=== PATIENT | male | born 1955 | race Caucasian/White ===

== ENCOUNTER 2024-01-18 14:49 | Emergency (ER) | payer MEDICARE, MEDICAID, SELFPAY ==
[2024-01-18 14:50] VITALS: BP 150/84; PULSE 68; RESP 18; TEMP 36.3; O2SAT 98; BMI 36.3
[2024-01-18 15:30] VITALS: BP 145/80; PULSE 74; RESP 14; TEMP 36.1; O2SAT 97
--- NOTE | 2024-01-18 15:39 | ED.RN ---
pt complaining about retaking vitals, i just had them taken 45 minutes ago.
--- NOTE | 2024-01-18 15:45 | EX.ED.UPPERE ---
HPI History of Present Illness Chief Complaint: Upper Extremity Injury Detail of Chief Complaint: Sent for evaluation for possible infection right hand Informant: patient Occured/Mechanism Comment: Swelling of right hand and chronic pain Onset/Context/Timing Onset: Days Context: Gradual Onset Timing: Continuous Location: Right hand Current Severity: Mild Maximum Severity: Mild Worsened by: Nonuse and dependency Relieved by: Nothing Associated Symptoms Associated Symptoms: Negative for Parasthesia, Weakness or Loss of Funtion Narrative Narrative: Patient is a 68-year-old [id number] male. He has a history of arthritis. He was seen by pain management. He was sent to the emergency room because there was concern for infection. Patient [place] fever, chills night sweats. Patient denies redness. Patient admits he has not been using his hand as much and his hand has been below the level of his heart. He only has swelling of his right hand which she is not using because of chronic pain due to arthritis. He specifically was sent to see if he has infection otherwise he will have the hand injected. Prior similar symptoms: Yes Recent Illness/Hospitalization: No PFSH PFSH Home Medications apixaban 5 mg tablet (Eliquis) mg PO 07/01/23 [History Last Taken Unknown] biotin 1 mg capsule 1 mg PO DAILY 07/01/23 [History Last Taken Unknown] cholecalciferol (vitamin D3) 10 mcg (400 unit) capsule 10 mcg PO DAILY 07/01/23 [History Last Taken Unknown] dulaglutide 0.75 mg/0.5 mL subcutaneous pen injector (Trulicity) 0.75 mg subcut QWEEK 07/01/23 [History Last Taken Unknown] ezetimibe 10 mg tablet mg PO 07/01/23 [History Last Taken Unknown] insulin NPH-regular 70-30 U-100 insulin 100 unit/mL subcutaneous pen (Humulin 70/30 U-100 KwikPen) subcut 07/01/23 [History Last Taken Unknown] lisinopril 5 mg tablet mg PO 07/01/23 [History Last Taken Unknown] magnesium 200 mg tablet 200 mg PO DAILY 07/01/23 [History Last Taken Unknown] metformin 1,000 mg tablet 1,000 mg PO 07/01/23 [History Last Taken Unknown] metoprolol succinate 25 mg tablet,extended release 24 hr mg PO 07/01/23 [History Last Taken Unknown] omeprazole 40 mg capsule,delayed release 40 mg PO 07/01/23 [History Last Taken Unknown] vitamin B complex (B Complex-Vitamin B12 tablet) 1 tab PO DAILY 07/01/23 [History Last Taken Unknown] Allergy/AdvReac Type Severity Reaction Status Date / Time amiodarone AdvReac Severe Dizziness, Verified 01/18/24 14:52 HAs empagliflozin AdvReac Severe muscle Verified 01/18/24 14:52 [From Jardiance] weakness semaglutide [From Ozempic] AdvReac Severe digestive Verified 01/18/24 14:52 issues tirzepatide [From Mounjaro] AdvReac Severe Digestive Verified 01/18/24 14:52 issues Social History (Updated 01/18/24 @ 15:[address] Alfonzo Hubbard MD) household members: spouse Smoking Status: Never smoker alcohol intake: never ROS ROS ED Constitutional Constitutional ED: Denies chills, fever(s) or subjective Musculoskeletal Musculoskeletal: Denies myalgias Integumentary Denies rash Neurologic Neurologic: Denies paresthesias or weakness Hematologic/Lymphatic Hematologic/Lymphatic: Denies easy bleeding or easy bruising EXAM Physical Exam Const Vital Signs: 01/18/24 14:50 01/18/24 15:30 Temperature 97.4 F L 97 F L Temperature Source Temporal Temporal Pulse Rate 68 74 Respiratory Rate 18 14 Blood Pressure 150/84 H 145/80 H Blood Pressure Mean 106 101 Pulse Ox 98 97 Oxygen Delivery Method Room Air Room Air Positive well nourished, well developed and obese General Appearance ED: well developed and NAD Nutritional Appearance: obese HEENT normocephalic and atraumatic Eyes PERRL and EOMs intact bilaterally Resp normal respiratory effort Cardio regular rate and regular rhythm Extremity Negative for normal to inspection Extremity Narrative: There is swelling of the right hand. There is no erythema, warmth or induration. There is no lymphangitis. There is no epitrochlear lymphadenopathy. There is no effusion of the wrist joint. There is no pain with passive flexion extension of the wrist or abduction or adduction of the wrist. There is no pain to palp patient of the digits and there is no pain with passive extension and flexion of the index through little finger. There is no pain with passive range of motion of the thumb. Capillary refill is normal. Patient does have swelling. Neuro oriented x3 and CN's II-XII intact bilaterally Sensorium / Orientation: alert Skin General Skin Exam: Negative for petechiae Lesions: no lesions Rashes: no rashes MDM MDM MDM Narrative Medical decision making narrative: Differential diagnosis is dependent lymphedema, exacerbation of osteo arthritis. Doubt hematoma. Patient is noted to be on apixaban. Clinically and from historical standpoint there is no concern for infection. Discharge Plan Triage Chief Complaint: Upper Extremity Injury ED Provider: Alfonzo Hubbard Dx/Rx/DC Orders Clinical Impression: Dependent edema Instructions: ED Lymphedema Prescriptions: No Action metformin 1,000 mg tablet 1,000 mg PO Patient Comments: take 1/2 tablets by mouth twice a day omeprazole 40 mg capsule,delayed release(DR/EC) 40 mg PO Patient Comments: take 1 capsule by mouth once daily magnesium 200 mg tablet 200 mg PO DAILY lisinopril 5 mg tablet PO Patient Comments: take 1 tablet by mouth once daily ezetimibe 10 mg tablet PO Patient Comments: take 1 tablet by mouth once daily Eliquis 5 mg tablet PO Patient Comments: TAKE 1 TABLET BY MOUTH EVERY 12 HOURS metoprolol succinate 25 mg tablet extended release 24 hr PO Patient Comments: take 1 tablet by mouth once daily vitamin B complex [B Complex-Vitamin B12] Tablet 1 tab PO DAILY cholecalciferol (vitamin D3) 10 mcg (400 unit) capsule 10 mcg PO DAILY biotin 1 mg capsule 1 mg PO DAILY Humulin 70/30 U-100 KwikPen 100 unit/mL (70-30) insulin pen subcut Patient Comments: INJECT 18 UNITS WITH BREAKFAST AND 46 UNITS WITH DINNER Trulicity 0.75 mg/0.5 mL pen injector 0.75 mg subcut QWEEK Primary Care Provider: Karthik Edge Referrals: Karthik Edge MD [Primary Care Provider] - As Needed Activity Restrictions/Additional Instructions: 1. You need to elevate your hand above your nose to help reduce the swelling 2. Use of your hand will also reduce the swelling. Disposition Disposition: Home, Self Care
== END 2024-01-18 16:00 | disposition home or self-care (01) ==
PROVIDERS: Emergency Provider Emergency Medicine; PCP Family Medicine; Visit Provider Emergency Medicine
DX: R60.0 Localized edema (principal); Z79.4 Long term (current) use of insulin; M19.041 Primary osteoarthritis, right hand; G89.29 Other chronic pain; Z79.01 Long term (current) use of anticoagulants; Z79.85 Long-term (current) use of injectable non-insulin antidiabetic drugs; Z79.84 Long term (current) use of oral hypoglycemic drugs; Z79.899 Other long term (current) drug therapy
CPT/HCPCS: 99282

== ENCOUNTER → 2024-05-16 | Outpatient (CLI) | payer MEDICARE, MEDICAID, SELFPAY ==
--- NOTE | 2024-05-16 13:45 | RAD_ITS ---
STUDY: X-RAY - PELVIS AND LEFT HIP REASON FOR EXAM: Male, 68 years old. Pain. Evaluate for sacroiliitis. TECHNIQUE: 3 views of the pelvis and hip. COMPARISON: None. FINDINGS: Osteopenia. Mild degenerative arthrosis of both sacroiliac joints and the symphysis pubis. Mild arthrosis of both hips. Normal bowel gas pattern with air seen to the rectosigmoid. Moderate amount feces colon. Phleboliths. Soft tissue calcification projected below the right ischium, likely vascular in origin. Vascular calcification. RAD/HIP, UNI W/ Pelvis 2-3 Views IMPRESSION: Osteopenia with mild degenerative arthrosis of both sacroiliac joints, symphysis pubis and both hips. Electronically Signed: Jaron Hickey MD at 14:09 EDT ,
== END | disposition home or self-care (01) ==
PROVIDERS: PCP Family Medicine; Referring Provider Anesthesiology; Visit Provider Anesthesiology
DX: M46.1 Sacroiliitis, not elsewhere classified (principal)
CPT/HCPCS: 73502

== ENCOUNTER → 2024-11-08 | Outpatient (CLI) | payer MEDICARE, MEDICAID, SELFPAY ==
--- NOTE | 2024-11-08 14:30 | RAD_ITS ---
PROCEDURE: Right shoulder radiographs REASON FOR EXAM: Pain TECHNIQUE: Four views of the right shoulder COMPARISON: None FINDINGS: See impression RAD/Shoulder min 2 Views IMPRESSION: Negative for fracture or malalignment. Small mineralized foci along the manager chinese ior aspect of the greater humeral tuberosity which may relate to calcific tendinopathy. Mineralization also noted along the later al aspect of the acromion which may relate to deltoid calcific tendinopathy. Please correlate. Mild acromioclavicular joint osteoarthritis. Reading Location: [place]
--- NOTE | 2024-11-08 14:30 | RAD_ITS ---
PROCEDURE: Left shoulder radiographs REASON FOR EXAM: Pain TECHNIQUE: Four views of the left shoulder COMPARISON: None FINDINGS: See impression RAD/Shoulder min 2 Views IMPRESSION: Negative for fracture or malalignment. Small foci of mineralization along the posterior greater humeral tuberosity and anterior aspect of the proximal humeral diaphysis which could relate to calcific tendino nasrin. Please correlate. Mild acromioclavicular joint osteoarthritis. Reading Location: [place]
== END | disposition home or self-care (01) ==
LOC: RAD 14:15
PROVIDERS: PCP Family Medicine; Referring Provider Anesthesiology; Visit Provider Anesthesiology
DX: M25.511 Pain in right shoulder (principal); M25.512 Pain in left shoulder
CPT/HCPCS: 73030

== ENCOUNTER → 2024-11-15 | Outpatient (CLI) | payer MEDICARE, MEDICAID, SELFPAY ==
--- NOTE | 2024-11-15 13:12 | RAD_ITS ---
PROCEDURE: CERV SPINE 4 OR 5 VIEWS TECHNIQUE: 5 views of the cervical spine. COMPARISON: None FINDINGS: Normal vertebral body heights. No visible fracture. Mild to moderate discogenic degenerative changes of the mid/lower cervical spine. Up to moderate bilateral neural foraminal stenosis of the mid cervical spine. Normal alignment. Prevertebral soft tissues are unremarkable. RAD/Cerv Spine 4 or 5 Views IMPRESSION: Moderate spondylosis. Reading Location: [place] [id number]
== END | disposition home or self-care (01) ==
LOC: RAD 13:09
PROVIDERS: PCP Family Medicine; Referring Provider Anesthesiology; Visit Provider Anesthesiology
DX: M47.812 Spondylosis without myelopathy or radiculopathy, cervical region (principal)
CPT/HCPCS: 72050

== ENCOUNTER → 2025-04-17 | Outpatient (CLI) | payer MEDICARE, MEDICAID, SELFPAY | END | disposition home or self-care (01) | LOC: SL 20:20 | PROVIDERS: PCP Family Medicine | DX: G47.33 Obstructive sleep apnea (adult) (pediatric) (principal); G47.31 Primary central sleep apnea | CPT/HCPCS: 95811 ==